=== PATIENT | male | born 1950 | race Caucasian/White ===

== ENCOUNTER → 2017-04-12 09:47 | Outpatient (CLI) | payer OTHER, MEDICARE, SELFPAY ==
--- NOTE | 2017-04-12 09:57 | RAD_ITS ---
STUDY: X-RAY - LEFT SHOULDER REASON FOR EXAM: Male, 67 years old. Pain. Remote fracture. TECHNIQUE: 4 view(s) of the shoulder. COMPARISON: None. FINDINGS: There is moderate degenerative arthrosis of the glenohumeral articulation. There is hypertrophic osteoarthrosis of the acromioclavicular joint with inferior osseous spur formation. Normal acromion. Degenerative spur along the inferior medial aspect of the humeral head. The soft tissue structures are unremarkable. Normal visualized pulmonary apex. RAD/Shoulder min 2 Views IMPRESSION: Degenerative changes of the glenohumeral joint and acromioclavicular joint. Electronically Signed: Dayton Garcia MD at 11:35 EST Tel [phone], Service support ,
== END ==
PROVIDERS: Family Provider Physician Assistant; PCP Physician Assistant; Visit Provider Anesthesiology Pain Medicine
DX: M25.512 Pain in left shoulder (principal)
CPT/HCPCS: 73030

== ENCOUNTER → 2017-11-08 09:23 | Outpatient (CLI) | payer OTHER, MEDICARE, SELFPAY ==
--- NOTE | 2017-11-08 09:27 | RAD_ITS ---
STUDY: X-RAY - LUMBAR SPINE REASON FOR EXAM: Male, 67 years old. Low back pain TECHNIQUE: 3 view(s) of the lumbar spine were obtained. COMPARISON: None FINDINGS: There is straightening of the normal lumbar lordosis. There is no substantial scoliosis. There is 5 mm retrolisthesis of L5 relative to L4 and S1. There is 4 mm retrolisthesis of L4 relative to L3. Otherwise normal alignment. Normal vertebral bodies and endplates. There is multilevel mild loss of disc height. There is no demonstrated fracture. There is atherosclerotic calcification of the abdominal aorta without a demonstrated aneurysm. RAD/Lumbar Spine 2 or 3 Views IMPRESSION: Mild degenerative changes. No acute abnormality. Electronically Signed: Aryan Rosario MD at 17:00 EDT , Service support ,
== END ==
PROVIDERS: Family Provider Physician Assistant; PCP Physician Assistant; Visit Provider Anesthesiology Pain Medicine
DX: M54.9 Dorsalgia, unspecified (principal)
CPT/HCPCS: 72100

== ENCOUNTER → 2018-08-01 08:51 | Outpatient (CLI) | payer OTHER, MEDICARE, SELFPAY ==
[2013-03-06 12:41] VITALS: BMI 29.2
[2018-08-01 09:43] LABS: Amphetamine Urine VISTA NEGATIVE (<1000 ng/mL); Barbiturate Urine VISTA NEGATIVE (< 200 ng/mL); Benzodiazepine Urine VISTA NEGATIVE (< 200 ng/mL); Cocaine Urine VISTA NEGATIVE (< 300 ng/mL); Ecstacy Urine VISTA NEGATIVE (< 500 ng/mL); Methadone Urine VISTA NEGATIVE (< 300 ng/mL); PCP Urine VISTA NEGATIVE (< 25 ng/mL); THC Urine VISTA NEGATIVE (< 50 ng/mL); Vista UDS pH Range 7
== END ==
PROVIDERS: Family Provider Physician Assistant; PCP Physician Assistant; Referring Provider Anesthesiology Pain Medicine; Visit Provider Anesthesiology Pain Medicine
DX: F11.20 Opioid dependence, uncomplicated (principal)
CPT/HCPCS: 80307

== ENCOUNTER → 2019-02-27 12:50 | Outpatient (CLI) | payer OTHER, MEDICARE, SELFPAY ==
[2018-11-07 14:12] VITALS: BMI 25.5
--- NOTE | 2019-02-27 12:50 | CT_ITS ---
STUDY: CT CHEST WITH CONTRAST REASON FOR EXAM: Male, 68 years old. PT STATED F/U TO THORACIC AORTIC ANEURYSM RADIATION DOSAGE (If Supplied By Facility): CTDIvol = ( 15.31 ) mGy, DLP = ( 581.55 ) mGycm TECHNIQUE: Transaxial imaging was performed following intravenous administration of IV 100mL Isovue-300. Multiplanar coronal and sagittal images were reformatted. Individualized dose optimization techniques were used for this CT. COMPARISON: None. FINDINGS: Lung windows show chronic interstitial changes in both lung richards. There is a noncalcified 3 mm nodule in the right middle lobe on axial image 72, and a 7 mm noncalcified nodule in the right lower lobe on axial image 82. Soft tissue windows show normal-appearing thyroid gland. There are scattered subcentimeter axillary and mediastinal lymph nodes. There are calcified coronary vessels. No pleural or pericardial effusions. Limited cuts to the upper abdomen show multiple scattered hepatic cysts, multiple scattered renal cysts that are suspicious for polycystic kidney disease. There is a nonobstructing stone in the left kidney. Additionally within the left lobe of the liver is a large peripherally enhancing low-density lesion likely a large hemangioma measuring 14 cm. There are low-density nodules on both adrenal glands as well. These may represent adenomas but metastatic lesions cannot be excluded. There are multi-level degenerative changes of the thoracic spine. CT/Chest WITH Contrast IMPRESSION: Chronic interstitial changes in both lung richards, no organized infiltrate or effusion, there are noncalcified nodules in the right middle and lower lobes as described above. Calcified coronary vessels Multiple renal and hepatic cysts, findings suggest polycystic kidney disease Large peripherally enhancing low-density lesion within the left lobe of the liver likely hemangioma Enlarged nodular adrenal glands, metastasis needs to be excluded though these could represent adenomas. Nonobstructing left nephrolithiasis Electronically Signed: Sanchez Callejas MD at 10:35 EST , Service support ,
[2019-02-27 13:20] LABS: CREATININE FINGERSTICK 1.1 mg/dL (0.70-1.30)
== END ==
PROVIDERS: Family Provider Physician Assistant; PCP Physician Assistant; Referring Provider Specialist; Visit Provider Specialist
DX: I77.810 Thoracic aortic ectasia (principal)
CPT/HCPCS: 71260; Q9967

== ENCOUNTER → 2019-05-01 09:44 | Outpatient (CLI) | payer OTHER, MEDICARE, SELFPAY ==
[2018-11-07 14:12] VITALS: BMI 25.5
[2019-05-01 10:55] LABS: Amphetamine Urine VISTA NEGATIVE (<1000 ng/mL); Barbiturate Urine VISTA NEGATIVE (< 200 ng/mL); Benzodiazepine Urine VISTA NEGATIVE (< 200 ng/mL); Cocaine Urine VISTA NEGATIVE (< 300 ng/mL); Ecstacy Urine VISTA NEGATIVE (< 500 ng/mL); Methadone Urine VISTA NEGATIVE (< 300 ng/mL); PCP Urine VISTA NEGATIVE (< 25 ng/mL); THC Urine VISTA NEGATIVE (< 50 ng/mL); Vista UDS pH Range 7
== END ==
PROVIDERS: PCP Physician Assistant; Referring Provider Anesthesiology Pain Medicine; Visit Provider Anesthesiology Pain Medicine
DX: F11.20 Opioid dependence, uncomplicated (principal)
CPT/HCPCS: 80307

== ENCOUNTER → 2019-09-06 09:05 | Outpatient (CLI) | payer OTHER, MEDICARE, SELFPAY ==
[2018-11-07 14:12] VITALS: BMI 25.5
[2019-09-06 10:37] LABS: Vitamin D,25 Hydroxy 24.9 ng/mL
[2019-09-06 10:50] LABS: Albumin, Serum 3.5 g/dL (3.2-5.0); BUN 19 mg/dL (7-18); BUN/Creat Ratio 20.9 RATIO (10-20); Calcium,Total 9.7 mg/dL (8.5-10.1); Chloride 106 mmol/L (98-107); Creatinine, Serum 0.91 mg/dL (0.70-1.30); EST Glomerular Filtration Rate 88 mL/min (>60); Est Glom Filt Rate - Afr Amer 107 mL/min (>60); Glucose 128 mg/dL (74-106); Phosphorus 2.5 mg/dL (2.5-4.9); Potassium 3.5 mmol/L (3.5-5.1); Sodium Level 140 mmol/L (136-145)
[2019-09-06 11:33] LABS: PTHIN 120.3 pg/mL (18.4-80.1)
[2019-09-08 21:13] LABS: Vitamin D 1,25-Dihydroxy 47.5 pg/mL (19.9-79.3)
== END ==
PROVIDERS: PCP Physician Assistant; Referring Provider Internal Medicine Nephrology; Visit Provider Internal Medicine Nephrology
DX: N18.2 Chronic kidney disease, stage 2 (mild) (principal); E83.52 Hypercalcemia
CPT/HCPCS: 36415; 80069; 82306; 82652; 83970

== ENCOUNTER → 2020-05-13 11:59 | Outpatient (CLI) | payer MEDICARE, SELFPAY ==
[2018-11-07 14:12] VITALS: BMI 25.5
[2020-05-13 13:16] LABS: Amphetamine Urine VISTA NEGATIVE (<1000 ng/mL); Barbiturate Urine VISTA NEGATIVE (< 200 ng/mL); Benzodiazepine Urine VISTA NEGATIVE (< 200 ng/mL); Cocaine Urine VISTA NEGATIVE (< 300 ng/mL); Ecstacy Urine VISTA NEGATIVE (< 500 ng/mL); Methadone Urine VISTA NEGATIVE (< 300 ng/mL); PCP Urine VISTA NEGATIVE (< 25 ng/mL); THC Urine VISTA NEGATIVE (< 50 ng/mL); Vista UDS pH Range 6
== END ==
PROVIDERS: PCP Physician Assistant; Referring Provider Anesthesiology Pain Medicine; Visit Provider Anesthesiology Pain Medicine
DX: F11.20 Opioid dependence, uncomplicated (principal)
CPT/HCPCS: 80307

== ENCOUNTER → 2020-07-17 16:23 | Outpatient (CLI) | payer MEDICARE, SELFPAY ==
[2018-11-07 14:12] VITALS: BMI 25.5
[2020-07-17 18:11] LABS: Albumin, Serum 3.4 g/dL (3.2-5.0); BUN 21 mg/dL (7-18); BUN/Creat Ratio 17.4 RATIO (10-20); Calcium,Total 9.6 mg/dL (8.5-10.1); Chloride 106 mmol/L (98-107); Creatinine, Serum 1.21 mg/dL (0.70-1.30); EST Glomerular Filtration Rate 63 mL/min (>60); Est Glom Filt Rate - Afr Amer 77 mL/min (>60); Glucose 86 mg/dL (74-106); Phosphorus 2.6 mg/dL (2.5-4.9); Potassium 3.8 mmol/L (3.5-5.1); Sodium Level 140 mmol/L (136-145)
== END ==
PROVIDERS: PCP Physician Assistant; Visit Provider Internal Medicine Nephrology
DX: Q61.2 Polycystic kidney, adult type (principal)
CPT/HCPCS: 36415; 80069

== ENCOUNTER → 2020-08-12 17:13 | Outpatient (CLI) | payer MEDICARE, SELFPAY ==
[2018-11-07 14:12] VITALS: BMI 25.5
--- NOTE | 2020-08-12 17:39 | US_ITS ---
STUDY: RENAL ULTRASOUND - COMPLETE REASON FOR EXAM: Male, 70 years old. APKD. TECHNIQUE: Ultrasound evaluation of the kidneys was performed with real-time and static haywood-scale imaging. COMPARISON: None. FINDINGS: Right kidney: Measures 12.7 cm. Normal contour. Renal cortical thickness appears normal. Multiple cysts largest measuring up to 4.8 cm. No masses, stones, or hydronephrosis identified. Left kidney: Measures 11.4 cm. Normal contour. Renal cortical thickness appears normal. Multiple cysts largest measuring up to 4.6 cm. A left upper pole cyst may demonstrate a solid component see image 58. No masses, stones, or hydronephrosis identified. Prominent extrarenal pelvis. Bladder: No intrinsic masses, stones, or abnormal dilatation noted. Left ureteral jet visualized. Right ureteral jet not visualized. Enlarged prostate measures up to 66.3 mL in volume US/Kidney and Bladder IMPRESSION: Multiple bilateral renal cysts and prominent left extrarenal pelvis. One of the cysts in the left kidney towards the upper pole may be complex and is poorly characterized on this examination. (Image 58) Comparison with any prior imaging and/or follow-up with contrast-enhanced renal mass protocol examination is recommended for definitive characterization. Enlarged prostate. Electronically Signed: Ashish Luz MD at 12:12 EDT Tel , Service support ,
== END ==
PROVIDERS: PCP Family Medicine; Referring Provider Internal Medicine Nephrology; Visit Provider Internal Medicine Nephrology
DX: Q61.2 Polycystic kidney, adult type (principal)
CPT/HCPCS: 76770

== ENCOUNTER → 2020-09-11 16:20 | Outpatient (CLI) | payer MEDICARE, SELFPAY ==
[2018-11-07 14:12] VITALS: BMI 25.5
[2020-09-11 17:24] LABS: Protein:Creat Ratio 108 mg/g CRE (0-200)
[2020-09-11 17:42] LABS: Albumin, Serum 3.5 g/dL (3.2-5.0); BUN 28 mg/dL (7-18); BUN/Creat Ratio 20.7 RATIO (10-20); Calcium,Total 9.6 mg/dL (8.5-10.1); Chloride 106 mmol/L (98-107); Creatinine, Serum 1.35 mg/dL (0.70-1.30); EST Glomerular Filtration Rate 56 mL/min (>60); Est Glom Filt Rate - Afr Amer 68 mL/min (>60); Glucose 83 mg/dL (74-106); Phosphorus 2.5 mg/dL (2.5-4.9); Potassium 3.8 mmol/L (3.5-5.1); Sodium Level 140 mmol/L (136-145)
== END ==
PROVIDERS: PCP Physician Assistant; Referring Provider Internal Medicine Nephrology; Visit Provider Internal Medicine Nephrology
DX: N18.2 Chronic kidney disease, stage 2 (mild) (principal)
CPT/HCPCS: 36415; 80069; 82570; 84156

== ENCOUNTER → 2020-10-21 08:42 | Outpatient (CLI) | payer MEDICARE, SELFPAY ==
[2018-11-07 14:12] VITALS: BMI 25.5
[2020-10-21 10:47] LABS: Albumin, Serum 3.5 g/dL (3.2-5.0); BUN 19 mg/dL (7-18); BUN/Creat Ratio 18.3 RATIO (10-20); Calcium,Total 9.6 mg/dL (8.5-10.1); Chloride 109 mmol/L (98-107); Creatinine, Serum 1.04 mg/dL (0.70-1.30); EST Glomerular Filtration Rate 75 mL/min (>60); Est Glom Filt Rate - Afr Amer 91 mL/min (>60); Glucose 166 mg/dL (74-106); Phosphorus 2.4 mg/dL (2.5-4.9); Sodium Level 140 mmol/L (136-145)
== END ==
PROVIDERS: PCP Physician Assistant; Referring Provider Internal Medicine Nephrology; Visit Provider Internal Medicine Nephrology
DX: N18.2 Chronic kidney disease, stage 2 (mild) (principal); N17.9 Acute kidney failure, unspecified
CPT/HCPCS: 36415; 80069

== ENCOUNTER → 2020-11-18 10:45 | Outpatient (CLI) | payer MEDICARE, SELFPAY ==
[2020-11-18 13:49] LABS: Amphetamine Urine VISTA NEGATIVE (<1000 ng/mL); Barbiturate Urine VISTA NEGATIVE (< 200 ng/mL); Benzodiazepine Urine VISTA NEGATIVE (< 200 ng/mL); Cocaine Urine VISTA NEGATIVE (< 300 ng/mL); Ecstacy Urine VISTA NEGATIVE (< 500 ng/mL); Methadone Urine VISTA NEGATIVE (< 300 ng/mL); PCP Urine VISTA NEGATIVE (< 25 ng/mL); THC Urine VISTA NEGATIVE (< 50 ng/mL); Vista UDS pH Range 6
== END ==
PROVIDERS: PCP Physician Assistant; Referring Provider Anesthesiology Pain Medicine; Visit Provider Anesthesiology Pain Medicine
DX: F11.20 Opioid dependence, uncomplicated (principal)
CPT/HCPCS: 80307

== ENCOUNTER → 2020-12-16 14:24 | Outpatient (CLI) | payer MEDICARE, SELFPAY ==
[2018-11-07 14:12] VITALS: BMI 25.5
[2020-12-16 15:54] LABS: Albumin, Serum 2.7 g/dL (3.2-5.0); BUN 19 mg/dL (7-18); BUN/Creat Ratio 16.2 RATIO (10-20); Calcium,Total 9.4 mg/dL (8.5-10.1); Chloride 108 mmol/L (98-107); Creatinine, Serum 1.17 mg/dL (0.70-1.30); EST Glomerular Filtration Rate 66 mL/min (>60); Est Glom Filt Rate - Afr Amer 80 mL/min (>60); Glucose 147 mg/dL (74-106); Phosphorus 2.5 mg/dL (2.5-4.9); Potassium 3.8 mmol/L (3.5-5.1); Sodium Level 141 mmol/L (136-145)
== END ==
PROVIDERS: PCP Physician Assistant; Referring Provider Internal Medicine Nephrology; Visit Provider Internal Medicine Nephrology
DX: N18.2 Chronic kidney disease, stage 2 (mild) (principal); N17.9 Acute kidney failure, unspecified
CPT/HCPCS: 36415; 80069

== ENCOUNTER → 2021-02-17 11:00 | Outpatient (CLI) | payer MEDICARE, SELFPAY ==
--- NOTE | 2021-02-17 11:05 | RAD_ITS ---
STUDY: X-RAY - CERVICAL SPINE REASON FOR EXAM: Male, 70 years old. NECK PAIN TECHNIQUE: History view(s) of the cervical spine were obtained. COMPARISON: None FINDINGS: Normal anterior atlantoaxial articulation. Normal odontoid process. There is reversal of the normal cervical lordosis. There is multi-level endplate spondylosis. Marked degree of disc space narrowing and spondylosis at the C5-C6 and C6-C7 levels. Minimal anterior listhesis of C4 on C5 most likely secondary to facet joint osteoarthritis. The soft tissue structures are unremarkable. RAD/Cerv Spine 2 or 3 Views IMPRESSION: There is reversal of the normal cervical lordosis. Marked degree of disc space narrowing and spondylosis at the C5-C6 and C6-C7 levels. Anterior listhesis of C4 on C5 most likely secondary to facet joint osteoarthritis. Electronically Signed: Dayton Garcia MD at 13:12 EST , Service support ,
== END ==
PROVIDERS: PCP Physician Assistant; Referring Provider Anesthesiology Pain Medicine; Visit Provider Anesthesiology Pain Medicine
DX: M54.2 Cervicalgia (principal)
CPT/HCPCS: 72040

== ENCOUNTER 2021-06-02 12:12 | Outpatient (CLI) | payer MEDICARE, SELFPAY ==
[2021-06-02 12:53] LABS: Protein, Urine (Random) 10.6 mg/dL (<11.9); Protein:Creat Ratio 809 mg/g CRE (0-200)
[2021-06-02 13:27] LABS: Albumin, Serum 3.6 g/dL (3.2-5.0); BUN 17 mg/dL (7-18); BUN/Creat Ratio 18.2 RATIO (10-20); Calcium,Total 9.4 mg/dL (8.5-10.1); Chloride 107 mmol/L (98-107); Creatinine, Serum 0.93 mg/dL (0.70-1.30); EST Glomerular Filtration Rate 85 mL/min (>60); Est Glom Filt Rate - Afr Amer 103 mL/min (>60); Glucose 100 mg/dL (74-106); Phosphorus 2.4 mg/dL (2.5-4.9); Potassium 4.1 mmol/L (3.5-5.1); Sodium Level 140 mmol/L (136-145)
== END 2021-06-02 23:59 | disposition home or self-care (01) ==
LOC: LAB 12:13
PROVIDERS: PCP Physician Assistant; Referring Provider Internal Medicine Nephrology; Visit Provider Internal Medicine Nephrology
DX: R80.9 Proteinuria, unspecified (principal); N18.2 Chronic kidney disease, stage 2 (mild)
CPT/HCPCS: 36415; 80069; 82570; 84156

== ENCOUNTER 2021-06-09 15:53 | Outpatient (CLI) | payer MEDICARE, SELFPAY ==
[2021-06-09 16:55] LABS: Protein, Urine (Random) 33.5 mg/dL (<11.9); Protein:Creat Ratio 216 mg/g CRE (0-200)
== END 2021-06-09 23:59 | disposition home or self-care (01) ==
LOC: LAB 15:54
PROVIDERS: PCP Physician Assistant; Visit Provider Internal Medicine Nephrology
DX: R80.9 Proteinuria, unspecified (principal)
CPT/HCPCS: 36415; 82570; 84156

== ENCOUNTER → 2021-08-28 | Outpatient (CLI) | payer MEDICARE, SELFPAY ==
--- NOTE | 2021-08-28 15:04 | CT_ITS ---
STUDY: CT SOFT TISSUE NECK WITHOUT CONTRAST REASON FOR EXAM: Male, 71 years old. DYSPNEA. History of lung cancer and resection of the left upper lobe. RADIATION DOSAGE (If Supplied By Facility): CTDIvol = ( 19.49 ) mGy, DLP = ( 1164.62 ) mGycm TECHNIQUE: The patient was scanned in a multi-detector CT scanner. High resolution transaxial imaging was performed without the administration of intravenous contrast material. Sagittal and coronal images were reconstructed. Individualized dose optimization techniques were used for this CT. COMPARISON: None. FINDINGS: Atherosclerotic plaque formation of the aortic arch. Calcified atherosclerotic plaques at the level of the carotid bifurcations bilaterally. Normal bilateral parotid glands. Normal bilateral furniture sales consultant spaces. Normal bilateral parapharyngeal spaces. Normal bilateral carotid spaces. Normal bilateral sublingual and submandibular glands and spaces. Normal visualized nasopharynx. Normal retropharyngeal space. Normal perivertebral space. Normal visualized bilateral faucial tonsils. The visualized tongue, tongue base and oropharynx are normal. The visualized cervical lymph nodes (levels I-) are within normal size limits, and maintain normal morphology. There is no demonstrated solid or cystic mass lesion. Normal epiglottis, bilateral vallecula and hypopharynx. The pre-epiglottic and paraglottic adipose spaces are normal. Normal visualized bilateral piriform sinuses, aryepiglottic folds, vocal cords, and arytenoid-cricoid articulations. Normal subglottic trachea. Normal bilateral lobes of the thyroid gland. Normal visualized pulmonary apices. Normal visualized paranasal sinuses. There is multilevel degenerative changes of the cervical spine. CT/Soft Tissue Neck without Contr IMPRESSION: No acute abnormality is seen. Electronically Signed: Dayton Garcia MD at 15:50 EDT ,
[2021-08-28 18:14] LABS: Amphetamine Urine VISTA NEGATIVE (<1000 ng/mL); Barbiturate Urine VISTA NEGATIVE (< 200 ng/mL); Benzodiazepine Urine VISTA NEGATIVE (< 200 ng/mL); Cocaine Urine VISTA NEGATIVE (< 300 ng/mL); Ecstacy Urine VISTA NEGATIVE (< 500 ng/mL); Methadone Urine VISTA NEGATIVE (< 300 ng/mL); PCP Urine VISTA NEGATIVE (< 25 ng/mL); THC Urine VISTA POSITIVE (< 50 ng/mL); Vista UDS pH Range 6
== END | disposition home or self-care (01) ==
PROVIDERS: Anesthesiology Pain Medicine; PCP Physician Assistant; Visit Provider Otolaryngology
DX: I65.23 Occlusion and stenosis of bilateral carotid arteries (principal); F11.20 Opioid dependence, uncomplicated; R06.00 Dyspnea, unspecified
CPT/HCPCS: 70490; 80307

== ENCOUNTER → 2022-04-13 | Outpatient (CLI) | payer MEDICARE, SELFPAY ==
[2022-04-13 15:04] LABS: Albumin, Serum 3.5 g/dL (3.2-5.0); BUN 18 mg/dL (7-18); BUN/Creat Ratio 16.4 RATIO (10-20); Calcium,Total 9.6 mg/dL (8.5-10.1); Chloride 111 mmol/L (98-107); EST Glomerular Filtration Rate 70 mL/min (>60); Est Glom Filt Rate - Afr Amer 85 mL/min (>60); Glucose 164 mg/dL (74-106); Phosphorus 2.1 mg/dL (2.5-4.9); Potassium 4.2 mmol/L (3.5-5.1); Sodium Level 141 mmol/L (136-145)
[2022-04-13 15:51] LABS: Amphetamine Urine VISTA NEGATIVE (<1000 ng/mL); Barbiturate Urine VISTA NEGATIVE (< 200 ng/mL); Benzodiazepine Urine VISTA NEGATIVE (< 200 ng/mL); Cocaine Urine VISTA NEGATIVE (< 300 ng/mL); Ecstacy Urine VISTA NEGATIVE (< 500 ng/mL); Methadone Urine VISTA NEGATIVE (< 300 ng/mL); PCP Urine VISTA NEGATIVE (< 25 ng/mL); THC Urine VISTA POSITIVE (< 50 ng/mL); Vista UDS pH Range 6
== END | disposition home or self-care (01) ==
PROVIDERS: PCP Physician Assistant; Referring Provider Internal Medicine Nephrology; Visit Provider Anesthesiology Pain Medicine
DX: N18.2 Chronic kidney disease, stage 2 (mild) (principal); F11.20 Opioid dependence, uncomplicated
CPT/HCPCS: 36415; 80069; 80307